=== PATIENT | female | born 1990 | race African-American/Black ===

== ENCOUNTER 2018-03-30 18:08 | Emergency (ER) | payer MEDICAID ==
[~2018-03-30] VITALS: Ht 165.1 cm; Wt 66.0 kg
[2018-03-30 18:27] VITALS: BP 119/75
== END 2018-03-31 00:40 | disposition left against medical advice (07) ==
LOC: ER 20:47
DX: R05 Cough (principal); Z53.21 Procedure and treatment not carried out due to patient leaving prior to being seen by health care provider

== ENCOUNTER 2018-07-11 16:54 | Emergency (ER) | payer MEDICAID ==
[~2018-07-11] VITALS: Ht 165.1 cm; Wt 74.0 kg
[2018-07-11] MEDS ORDERED: SODIUM CHLORIDE 0.9% 1,000 ML IV ONE (18:29)
[2018-07-11] MEDS ORDERED: ONDANSETRON HCL 4MG/2ML INJ IV ONE (18:30)
[2018-07-11 18:39] LABS: CLARITY URINE CLOUDY (CLEAR); COLOR URINE DARK YELLOW (YELLOW); KETONES URINE 4+ (NEGATIVE); LEUKOCYTE ESTERASE URINE NEGATIVE (NEGATIVE); NITRITE URINE NEGATIVE (NEGATIVE); OCCULT BLOOD URINE NEGATIVE (NEGATIVE); PROTEIN URINE 1+ (NEGATIVE); SPECIFIC GRAVITY URINE 1.022 (1.005-1.030)
[2018-07-11 18:58] LABS: EOSINOPHILS % 0.8 % (0.0-5.0); HEMATOCRIT. 43.8 % (36.0-48.0); LYMPHOCYTES % 21.1 % (20.0-50.0); MEAN CORPUSCULAR VOLUME 84.5 fL (81.0-99.0); MEAN PLATELET VOLUME 10.4 fl (7.4-10.4); MONOCYTES % 7.9 % (2.0-8.0); NEUTROPHILS % 69.2 % (40.0-76.0); PLATELET 192 x1000/uL (130-400); RED BLOOD CELL COUNT 5.18 mill/uL (4.2-5.4); RED CELL DISTRIBUTION WIDTH 15.1 % (11.6-14.6)
[2018-07-11 19:08] LABS: CHLORIDE 101 mEq/L (98-107)
[2018-07-11 19:33] LABS: B-HCG QUANTITATIVE 58710 mIU/mL (<3)
[2018-07-11] MEDS ORDERED: POTASSIUM CHLORIDE 20MEQ TABLET SR PO ONE (20:45)
[2018-07-11 21:57] VITALS: BP 111/69
[2018-07-11] MEDS ORDERED: ONDANSETRON 4MG ODT PO ONE (22:00)
== END 2018-07-11 22:02 | disposition home or self-care (01) ==
LOC: ER 16:54
DX: O21.1 Hyperemesis gravidarum with metabolic disturbance (principal); O26.891 Other specified pregnancy related conditions, first trimester; E78.6 Lipoprotein deficiency; Z3A.09 9 weeks gestation of pregnancy; G43.909 Migraine, unspecified, not intractable, without status migrainosus; Z98.890 Other specified postprocedural states
CPT/HCPCS: 36415; 76801; 76817; 80048; 81003; 81025; 84702; 85025; 96361; 96374; 99285; J2405; J7030; Q0162